=== PATIENT | male | born 1950 | race Caucasian/White ===

== ENCOUNTER → 2024-08-18 | Outpatient (CLI) | payer OTHER, SELFPAY ==
[2024-08-18 16:59] LABS: Albumin, Serum 4.2 gm/dL (3.4-4.8); Anion Gap 8 (7-16); BUN/Creatinine Ratio 11 Ratio (12-20); Blood Urea Nitrogen 20 mg/dL (9-23); Calcium 9.6 mg/dL (8.3-10.6); Calcium (Corrected) 9.6 mg/dL (8.5-10.1); Carbon Dioxide 28.5 mMol/L (20.0-31.0); Chloride 105 mMol/L (98-107); Creatinine (Component) 1.8 mg/dL (0.6-1.3); Glucose 114 mg/dL (74-106); Osmolality,Calculated 284 (275-295); Phosphorous 3.2 mg/dL (2.4-5.1); Sodium 141 mMol/L (136-145); eGFR 39 See Note
== END | disposition home or self-care (01) ==
LOC: COPL 15:01
PROVIDERS: PCP Family Medicine; Referring Provider Internal Medicine; Visit Provider Internal Medicine
DX: I12.9 Hypertensive chronic kidney disease with stage 1 through stage 4 chronic kidney disease, or unspecified chronic kidney disease (principal); N18.32 Chronic kidney disease, stage 3b
CPT/HCPCS: 36415; 80069

== ENCOUNTER 2024-10-02 13:00 | Day surgery (SDC) | payer OTHER, SELFPAY ==
[2024-10-01 15:05] VITALS: BMI 25.0
[2024-10-02] VITALS (8 sets, daily range): BP systolic 113–132; BP diastolic 77–92; PULSE 73–81; RESP 10–21; TEMP 36.6–36.8; O2SAT 92–98; BMI 25.2
[2024-10-02] MEDS: DiphenhydrAMINE INJ 50 MG/ML VIAL 25 MG IV (14:34)
[2024-10-02] MEDS: ONDANSETRON INJ 2 MG/ML INJ 2 ML 4 MG IV (14:34)
[2024-10-02] MEDS: fentaNYL CIT INJ 50 mCg/ML AMP 2ML (ASD USE ONLY) IV (14:36)
[2024-10-02] MEDS: MIDAZOLAM INJ 1 MG/ML VIAL 2 ML (ASD USE ONLY) 2 MG IV (14:36)
--- NOTE | 2024-10-02 16:05 | SUR.PHASEII ---
1520 Pt more awake and alert. Denies pain, N/V or difficulty swallowing. Norma PO fluids. 1545 Pt assessment unchanged. No complaints. assisting pt getting dressed. DC instructions given. Both state understanding. Pt meets dc criteria-to home.
== END 2024-10-02 15:45 | disposition home or self-care (01) ==
PROVIDERS: PCP Family Medicine; Referring Provider Specialist; Visit Provider Specialist
PROC: (CPT 43239; principal; 2024-10-02 14:00)
DX: K22.11 Ulcer of esophagus with bleeding (principal); K22.2 Esophageal obstruction; K29.70 Gastritis, unspecified, without bleeding; K31.89 Other diseases of stomach and duodenum; K29.50 Unspecified chronic gastritis without bleeding
CPT/HCPCS: 43248; 43239; A4649; C1769; J1200; J2250; J2405; J3010

== ENCOUNTER → 2025-02-09 | Outpatient (CLI) | payer OTHER, SELFPAY ==
[2025-02-09 13:52] LABS: Albumin, Serum 4.2 gm/dL (3.4-4.8); Anion Gap 5 (7-16); BUN/Creatinine Ratio 14 Ratio (12-20); Blood Urea Nitrogen 21 mg/dL (9-23); Calcium 9.9 mg/dL (8.3-10.6); Calcium (Corrected) 9.9 mg/dL (8.5-10.1); Carbon Dioxide 27.4 mMol/L (20.0-31.0); Chloride 105 mMol/L (98-107); Creatinine (Component) 1.5 mg/dL (0.6-1.3); Glucose 104 mg/dL (74-106); Osmolality,Calculated 276 (275-295); Phosphorous 3.9 mg/dL (2.4-5.1); Potassium 4.3 mMol/L (3.4-5.1); Sodium 137 mMol/L (136-145); eGFR 49 See Note
[2025-02-09 15:44] LABS: Vitamin D 25 Hydroxy Total 31.9 ng/mL (7.3-40.2)
== END | disposition home or self-care (01) ==
LOC: COPL 12:23
PROVIDERS: PCP Family Medicine; Referring Provider Internal Medicine; Visit Provider Internal Medicine
DX: I12.9 Hypertensive chronic kidney disease with stage 1 through stage 4 chronic kidney disease, or unspecified chronic kidney disease (principal); N18.32 Chronic kidney disease, stage 3b
CPT/HCPCS: 36415; 80069; 82306

== ENCOUNTER → 2025-07-28 | Outpatient (CLI) | payer OTHER, SELFPAY ==
[2025-07-28 10:47] LABS: Basophils # (Auto) 0.0 Thou/mm3 (0.0-0.2); Basophils % (Auto) 1 % (0-2.5); Eosinophils # (Auto) 0.1 Thou/mm3 (0.0-0.5); Eosinophils % (Auto) 2 % (0-10); Hematocrit 41.0 % (41.0-53.0); Hemoglobin 13.5 g/dL (13.5-16.0); Immature Granulocytes Auto 0.02 Thou/mm3 (0.00-0.00); Lymphocytes # (Auto) 2.6 Thou/mm3 (1.0-4.8); Lymphocytes % (Auto) 44 % (10-50); Mean Corpuscular HGB Conc 32.9 g/dl (31.0-37.0); Mean Corpuscular Hemoglobin 30.2 pg (25.0-35.0); Mean Corpuscular Volume 92 fL (80-100); Monocytes # (Auto) 0.5 Thou/mm3 (0.0-0.8); Monocytes % (Auto) 9 % (0-12); Neutrophils # (Auto) 2.7 Thou/mm3 (1.8-7.7); Neutrophils % (Auto) 45 % (37-80); Nucleated Red Blood Cell # 0.00 Thou/mm3 (0.00-0.00); Nucleated Red Blood Cell % 0 /100 WBC (0); Platelet Count 170 Thou/mm3 (140-440); RDW Standard Deviation 45.7 fL (35.1-43.9); Red Blood Count 4.47 Miln/mm3 (4.50-5.90); White Blood Count 5.9 Thou/mm3 (3.8-10.6)
[2025-07-28 11:01] LABS: Albumin, Serum 4.2 gm/dL (3.4-4.8); Anion Gap 10 (7-16); BUN/Creatinine Ratio 9 Ratio (12-20); Blood Urea Nitrogen 17 mg/dL (9-23); Calcium 9.6 mg/dL (8.3-10.6); Calcium (Corrected) 9.6 mg/dL (8.5-10.1); Carbon Dioxide 28.5 mMol/L (20.0-31.0); Chloride 105 mMol/L (98-107); Creatinine (Component) 2.0 mg/dL (0.6-1.3); Glucose 140 mg/dL (74-106); Osmolality,Calculated 288 (275-295); Phosphorous 2.8 mg/dL (2.4-5.1); Potassium 3.9 mMol/L (3.4-5.1); Sodium 143 mMol/L (136-145); eGFR 35 See Note
[2025-07-28 11:02] LABS: Vitamin D 25 Hydroxy Total 26.6 ng/mL (7.3-40.2)
== END | disposition home or self-care (01) ==
PROVIDERS: PCP Family Medicine; Referring Provider Internal Medicine; Visit Provider Internal Medicine
DX: I12.9 Hypertensive chronic kidney disease with stage 1 through stage 4 chronic kidney disease, or unspecified chronic kidney disease (principal); N18.32 Chronic kidney disease, stage 3b
CPT/HCPCS: 36415; 80069; 82306; 82570; 84156; 85025

== ENCOUNTER → 2025-08-24 | Outpatient (CLI) | payer OTHER, SELFPAY ==
--- NOTE | 2025-08-24 12:40 | XR_ITS ---
Examination: Bone densitometry Date and time of exam: August 24, 2025, 1347 hours INDICATIONS: 75-year-old male with diagnosis age-related osteoporosis Technique: Lumbar spine and hip total bone mineralization values of an calculated. Peak reference and age match control results have been displayed. Findings: Lumbar spine total bone mineralization is 1.063 gm/cm2. This is 0.3 standard deviations below peak reference. This is 0.7 standard deviations above age-matched controls. Hip total bone mineralization is 0.883 gm/cm2 This is 1.0 standard deviations below peak reference. This is 0.2 standard deviations above age-matched controls Impression: There is normal mineralization based on lumbar spine measurements. There is osteopenia based on hip measurements
== END | disposition home or self-care (01) ==
PROVIDERS: PCP Family Medicine; Referring Provider Family Medicine; Visit Provider Family Medicine
DX: M85.88 Other specified disorders of bone density and structure, other site (principal)
CPT/HCPCS: 77080